=== PATIENT | female | born 1940 | race Asian ===

== ENCOUNTER 2016-05-28 00:53 | Emergency (ER) | payer MEDICAID, OTHER ==
[2016-05-28] VITALS (7 sets, daily range): BP systolic 134–171; BP diastolic 64–74
[~2016-05-28] VITALS: Ht 160 cm; Wt 64.4 kg
[~2016-05-28 00:53] MED LIST: CIPRODEX OTIC7.5 M1 LEFT EAR; CORTISPORIN EAR10 M1 LEFT EAR; DILTIAZEM ER180 MG PO; GLYBURIDE-METF1 EACH PO; LEXAPRO10 MG ORAL; LOSARTAN POTAS100 MG PO; METOPROLOL TAR100 MG ORAL
--- NOTE | 2016-05-28 01:34 | Emergency Room Report ---
History of Present Illness General Chief Complaint: Abdominal Pain Source: Patient, Family Member Present Illness HPI Is a 76-year-old [place] female with history of hypertension. She has no abdominal or pelvic surgery. She presents with chief complaint of abdominal pain that started around 7 PM. Has diffuse pain. Pain is 9/10. She has vomiting but no diarrhea. No fever or chills. Nothing made it better. Nothing made it worse. No other complaint the Allergies: Coded Allergies: No Known Allergies (Unverified , 07/17/12) Patient History Past Medical History: see triage record, old chart reviewed, HTN Past Surgical History: other Pertinent Family History: none Social History: Denies: smoking Now: No Immunizations: other Reviewed Nursing Documentation: PMH: Agreed, PSxH: Agreed Nursing Documentation-PMH Hx Hypertension: Yes Hx Diabetes: Yes History Of Psychiatric Problem: Yes - ANXIETY Review of Systems Eye: Denies: blurred vision, eye pain ENT: Denies: ear pain, nose congestion, throat swelling Respiratory: Denies: cough, shortness of breath Cardiovascular: Denies: chest pain, palpitations Gastrointestinal: Reports: abdominal pain, nausea, vomiting, Denies: diarrhea Musculoskeletal: Denies: back pain, joint pain Skin: Denies: rash Neurological: Denies: headache, numbness Endocrine: Denies: increased thirst, increased urine Hematologic/Lymphatic: Denies: easy bruising All Other Systems: negative except mentioned in HPI Physical Exam Vital Signs Date Time Temp Pulse Resp B/P Pulse Ox O2 Delivery O2 Flow Rate FiO2 05/28/16 01:11 97.9 75 20 186/81 99 Room Air vitals with hypertension Sp02 EP Interpretation: reviewed, normal General Appearance: well appearing, alert, moderate distress - From pain Head: normocephalic, atraumatic Eyes: bilateral eye EOMI, bilateral eye PERRL ENT: hearing grossly normal, normal pharynx Neck: full range of motion, supple, no meningismus Respiratory: chest non-tender, lungs clear, normal breath sounds Cardiovascular #1: regular rate, rhythm, no murmur Gastrointestinal: no mass, no organomegaly, no bruit, non-distended, abnormal bowel sounds - Decreased, tenderness - Diffuse Musculoskeletal: back normal, gait/station normal, normal range of motion Neurologic: alert, oriented x3 Psychiatric: mood/affect normal Skin: warm/dry Medical Decision Making Diagnostic Impression: Primary Impression: Ureteral stone with hydronephrosis Additional Impressions: Hyperglycemia due to type 2 diabetes mellitus Qualified Codes: E11.65 - Type 2 diabetes mellitus with hyperglycemia Hypertension Qualified Codes: I10 - Essential (primary) hypertension Chronic kidney disease Qualified Codes: N18.9 - Chronic kidney disease, unspecified ER Course Patient presents with acute onset of right-sided abdominal pain. She has a UPJ stone. She does have moderate hydronephrosis. No evidence of infection. Pain is better controlled now. She does not want to be admitted or transfer to another hospital. She wants to try to see if she can passed the kidney stone. I will give her the report of the CT scan her labs. We'll have her followup with her DrCortez for referral to see a urologist. Explained to her daughter is here with her and also one in [place] that she may need a stent if she has fever , evidence of infection or unable to pass a kidney stone. Lab Results Impression labs with elevated creatinine and glucose CT/MRI/US Diagnostic Results CT/MRI/US Diagnostic Results : Imaging Test Ordered: CT abdomen and pelvis Impression Read by radiologist. 4.6 mm UPJ calculus with moderate right hydronephrosis. Last Vital Signs Date Time Temp Pulse Resp B/P Pulse Ox O2 Delivery O2 Flow Rate FiO2 05/28/16 01:11 97.9 75 20 186/81 99 Room Air Status: improved Disposition: HOME, SELF-CARE Condition: Stable Scripts Tamsulosin Hcl (TAMSULOSIN HCL*) 0.4 Mg Cap.er.24h 0.4 MG ORAL BEDTIME, #14 CAP Prov: AISLINN UNDERWOOD M.D. 05/28/16 Cephalexin* (KEFLEX*) 500 Mg Capsule 500 MG ORAL TID, #21 CAP 0 Refills Prov: AISLINN UNDERWOOD M.D. 05/28/16 Hydrocodone/Acetaminophen 5-325* (HYDROCODONE/ACETAMINOPHEN 5-325*) 1 Each Tablet 1 TAB ORAL Q6H Y for For Pain, #20 TAB 0 Refills Prov: AISLINN UNDERWOOD M.D. 05/28/16 Additional Instructions: Followup with your doctor in a couple days for referral to see a urologist. Return if symptom worsen. Return for fever, vomiting, intractable pain or any concern. AISLINN UNDERWOOD M.D. May 28, 2016 01:34
[2016-05-28] MEDS ORDERED: Morphine Sulfate 4mg/ml Inj IVP ONE ×2 (01:45→02:30)
[2016-05-28] MEDS ORDERED: Tubing IV Cassette IV ONE (01:51)
[2016-05-28 02:16] LABS: INR 0.9 (0.9-1.1); PROTHROMBIN TIME 9.4 SEC (9.30-11.50)
[2016-05-28 02:21] LABS: ALANINE AMINOTRANSFERASE 15 U/L (3-33); ALBUMIN/GLOBULIN RATIO 1.2 (1.0-2.7); ANION GAP 20 (5-15); ASPARTATE AMINO TRANSFERASE 19 U/L (5-40); BASOPHILS % (AUTO) 0.7 % (0.0-2.0); CALCIUM 9.8 mg/dL (8.6-10.2); CARBON DIOXIDE 22 mEQ/L (20-30); CHLORIDE 92 mEQ/L (98-107); CREATININE 1.8 mg/dL (0.5-0.9); EOSINOPHILS % (AUTO) 0.1 % (0.0-3.0); HEMOLYSIS 23; LIPASE 67 U/L (< 60); LYMPHOCYTES % (AUTO) 13.3 % (20.0-45.0); MEAN CORPUSCULAR HEMOGLOBIN 29.5 PG (27.0-31.0); MEAN CORPUSCULAR HGB CONC 33.7 G/DL (32.0-36.0); MEAN CORPUSCULAR VOLUME 88 FL (80-99); MEAN PLATELET VOLUME 7.5 FL (6.5-10.1); MONOCYTES % (AUTO) 2.3 % (1.0-10.0); NEUTROPHILS % (AUTO) 83.6 % (45.0-75.0); PLATELET COUNT 208 K/UL (150-450); RED BLOOD COUNT 4.26 M/UL (4.20-5.40); RED CELL DISTRIBUTION WIDTH 12.2 % (11.6-14.8); SODIUM 134 mEQ/L (135-145); TOTAL PROTEIN 8.4 g/dL (6.6-8.7)
[2016-05-28 02:22] LABS: APPEARANCE,URINE CLEAR; KETONES,URINE NEGATIVE (NEGATIVE); LEUKOCYTE ESTERASE ,URINE 1+ (NEGATIVE); NITRITE,URINE NEGATIVE (NEGATIVE); PH,URINE 5 (4.5-8.0); PROTEIN,URINE 3+ (NEGATIVE); UROBILINOGEN,URINE NORMAL MG/DL (0.0-1.0)
[2016-05-28 02:43] LABS: BACTERIA,URINE FEW /HPF; RBC,URINE TNTC /HPF (0 - 2); SQUAMOUS EPITHELIAL CELL,UR FEW /LPF (NONE/OCC)
[2016-05-28] MEDS ORDERED: cefTRIAXone 1 GM in NS 55 ML IVPB ONE (04:00)
[2016-05-28] MEDS ORDERED: TAMSULOSIN HCL0.4 MG ORAL (04:14)
[2016-05-28] MEDS ORDERED: HYDROCODON-ACE1 EA15 ORAL (04:14)
[2016-05-28] MEDS ORDERED: KEFLEX500 MG ORAL (04:14)
--- NOTE | 2016-06-07 11:45 | Diagnostic Imaging Report ---
\H\CT Abdomen and Pelvis Date of service: 05/28/16. Indication: Right lower quadrant abdominal pain. Comparison: None available. Technique: Utilizing a multislice CT scanner, a CT of the abdomen and pelvis was performed without intravenous contrast. All CT scans at this facility use dose modulation, iterative reconstruction, and/or weight based dosing when appropriate to reduce radiation dose to as low as reasonably achievable. CTDIvol (mGy): 17 DLP (mGy-cm): 828 Findings: Lack of intravenous contrast limits evaluation of the visceral and vascular structures. The visualized lung bases exhibit mild pulmonary edema, atelectasis or scarring. Small hiatal hernia noted. The liver is unremarkable. The gallbladder contains small stones. The pancreas, spleen and adrenal glands are unremarkable. There is a 5 mm obstructing stone at the right ureteropelvic junction (UPJ) resulting in moderate right hydronephrosis and perinephric stranding. Additional punctate nonobstructing right lower renal calculi noted. No left hydronephrosis identified. The urinary bladder is moderately distended. Pelvic organs appear grossly unremarkable. The visualized bowel are grossly unremarkable. There is no evidence of obstruction. There is no extraluminal gas or fluid. There are no enlarged lymph nodes. Small fat-containing right inguinal hernia is identified. There is moderate concentric calcified atherosclerotic disease of the the abdominal aorta. The osseous structures are unremarkable. \N\\H\Impression: 1. Right obstructive uropathy with a 5 mm stone at the right UPJ resulting in moderate right hydronephrosis and perinephric stranding. 2. Additional punctate nonobstructing stones noted in the lower right kidney. 3. Moderately distended urinary bladder. Consider bladder ultrasound with postvoid residual evaluation. 4. Cholelithiasis. 5. Small hiatal hernia. \N\
== END 2016-05-28 14:28 | disposition short-term general hospital (02) ==
LOC: EDBEDREQ 05:54 → EMR 06:51
DX: N13.2 Hydronephrosis with renal and ureteral calculous obstruction (principal); E11.65 Type 2 diabetes mellitus with hyperglycemia; I12.9 Hypertensive chronic kidney disease with stage 1 through stage 4 chronic kidney disease, or unspecified chronic kidney disease; N18.9 Chronic kidney disease, unspecified
CPT/HCPCS: 36415; 74176; 80053; 81003; 82962; 83690; 85025; 85610; 85730; 96360; 96361; 96374; 96375; 99285; J0696; J1815; J2270; J2405